=== PATIENT | male | born 1990 | race African-American/Black ===

== ENCOUNTER 2021-08-08 21:29 | Emergency (ER) | payer MEDICAID, OTHER ==
[~2021-08-08] VITALS: Ht 180.3 cm; Wt 68.9 kg
[2021-08-08 22:06] VITALS: BP 123/80
[2021-08-08] MEDS ORDERED: HYDR-4798 PO ×2 (23:13→23:15)
[2021-08-08] MEDS ORDERED: HYDROcodone-ACET 10/325MG TAB PO ONE (23:30)
== END 2021-08-08 23:40 | disposition home or self-care (01) ==
LOC: ER 21:33
DX: S02.92XA Unspecified fracture of facial bones, initial encounter for closed fracture (principal); S01.81XA Laceration without foreign body of other part of head, initial encounter; Y04.2XXA Assault by strike against or bumped into by another person, initial encounter; Y93.89 Activity, other specified; Y92.89 Other specified places as the place of occurrence of the external cause; Y99.8 Other external cause status
CPT/HCPCS: 12013; 70450; 70486; 72125; 99284; J2001